=== PATIENT | male | born 1980 | race Caucasian/White ===

== ENCOUNTER 2018-11-10 00:46 | Emergency (ER) | payer BC ==
[~2018-11-10] VITALS: Ht 167.6 cm; Wt 74.8 kg
[~2018-11-10 00:46] MED LIST: NORCO 5-325 TA1 EACH PO; ZOFRAN ODT4 MG PO
[2018-11-10] MEDS ORDERED: PREDNISONE50 MG PO (02:32)
[2018-11-10] MEDS ORDERED: ZPAK PO (02:32)
[2018-11-10] MEDS ORDERED: PROAIR HFA8.5 GM INH (02:32)
[2018-11-10 02:52] VITALS: BP 115/72
--- NOTE | 2018-11-11 17:54 | EKG ---
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: [place] : 1980 Requested By: Nila Mclain Order Number: [id number] Luca MD: Catalino Vargas Measurements Intervals [place] Rate: 102 P: 34 VT: 131 QRS: -50 QRSD: 98 T: 34 QT: 376 QTc: 490 Interpretive Statements Sinus tachycardia LAD, consider left anterior fascicular block Borderline prolonged QT interval Baseline wander in lead(s) V4,V5 No previous ECG available for comparison Electronically Signed On 11-11-2018 17:54:25 CDT by Catalino Vargas [email or web address] <ELECTRONICALLY SIGNED> By: Tariq Vargas MD, [facility] 11/11/18 1754 005 Tariq Vargas MD, [facility] /EPI
== END 2018-11-10 02:53 | disposition home or self-care (01) ==
LOC: M.ERS 00:46
DX: L53.9 Erythematous condition, unspecified (principal); T36.0X5A Adverse effect of penicillins, initial encounter; Y92.89 Other specified places as the place of occurrence of the external cause